=== PATIENT | male | born 1965 | race Caucasian/White ===

== ENCOUNTER 2017-12-13 05:28 | Day surgery (SDC) | payer MEDICAID ==
[2017-12-12 11:37] LABS: HEMOGLOBIN 16.2 g/dL (13.5-17.5); MCH 31.6 pg (26.0-34.0); MCHC 35.2 g/dL (31.0-37.0); MCV 89.8 fL (80.0-100.0); MEAN PLATELET VOLUME 8.8 fL (7.4-10.4); RBC 5.12 10x6/uL (4.20-6.10); RDW 12.6 % (11.5-14.5); WBC 12.5 10x3/uL (4.8-10.8)
[2017-12-12 11:44] LABS: INR 0.95 (0.85-1.17); PROTIME 12.3 SECONDS (11.6-15.0)
[2017-12-12 11:45] LABS: APTT 27.4 SECONDS (22.8-39.4)
[2017-12-12 11:55] LABS: ALBUMIN 3.5 g/dL (3.4-5.0); ALKALINE PHOSPHATASE 121 U/L (46-116); ALT (SGPT) 31 U/L (10-68); CALC OSMOLALITY 278 mosm/kg (275-300); CALCIUM 8.8 mg/dL (8.5-10.1); CARBON DIOXIDE 22.5 mmol/L (21.0-32.0); CHLORIDE - SERUM 102 mmol/L (98-107); CREATININE - SERUM 0.8 mg/dL (0.6-1.3); GLUCOSE 152 mg/dL (74-106); SODIUM 138 mmol/L (136-145); UREA NITROGEN 12 mg/dL (7-18); eGFR NON AFRICAN AMERICAN > 90 mL/min (90-120)
[~2017-12-13] VITALS: Ht 170.2 cm; Wt 73.5 kg
[2017-12-13] VITALS (17 sets, daily range): BP systolic 96–170; BP diastolic 54–104; BMI 27.0
--- NOTE | ~2017-12-13 | OP ---
PATIENT NAME: HOA LOZOYA JR MEDICAL RECORD: [id number] :61 LOCATION:[facility] ADMISSION DATE: SURGEON: REGGIE PRINCE MD DATE OF OPERATION: 12/13/2017 PREOPERATIVE DIAGNOSES: Osteophyte formation and disc herniation at C5-C6 and C6-C7. POSTOPERATIVE DIAGNOSES: Osteophyte formation and disc herniation at C5-C6 and C6-C7 with cervical radiculopathy and central canal stenosis secondary to osteophyte formation. PROCEDURE: Anterior cervical discectomy and fusion at C5-C6 and C6-C7 with removal of osteophytes, Zavation anterior cervical plate and screws, PEEK interbody cages, and separate anterior cervical plate and screws ViaCell bone stem cell allograft. SURGEON: Reggie Prince MD DESCRIPTION OF TECHNIQUE: After induction of general endotracheal anesthesia, the patient was positioned supine on the operating table. Neck was prepped and draped in usual sterile fashion. Fluoroscopic x-ray and freer localized the C5-C6 interspace. A transverse skin incision was carried out from the midline to the sternocleidomastoid muscle. The platysma was divided with Bovie cautery. Using blunt and sharp dissection with Metzenbaum scissors, I proceeded in avascular plane medial to the carotid sheath. The C5-C6 and C6-C7 interspaces were identified with fluoroscopic x-ray and spinal needle. Self-retaining retractors were placed deep to the longus colli muscles. [place]on distracting pins were placed in the bodies of C5, C6, and C7. Each interspace was incised with #11 blade and series of curettes and pituitary rongeurs were used to remove disc material. With a microscope, a Midas Param drill were used to remove osteophytes posteriorly. The posterior longitudinal ligament was removed with Cloward rongeurs. Next, a PEEK interbody cage was placed into each interspace. Prior to this, the posterior longitudinal ligament was removed and the dura was decompressed well on both sides with foraminotomies as well. Prior to placing the PEEK interbody cages, these were filled with ViaCell bone stem cell allograft. Next, a 2-level midline Uniplate was used to span the C5-C6 and C6-C7 interspaces, 18 mm screws were placed through the holes in the plate. Locking cams were tightened down the screw heads. Good position of the hardware was confirmed with the fluoroscopic x-ray. Meticulous hemostasis was maintained throughout the wound. The wound was irrigated with copious amounts of Ancef irrigant solution. The platysma and subdermal layer closed with interrupted 3-0 Vicryl suture, the subdermal layer was closed with interrupted 3-0 Vicryl suture. The skin was reapproximated with Steri-Strips and benzoin. A sterile dressing was applied to the wound. The patient was awakened in good condition and taken to recovery. All counts were reported as correct. Estimated blood loss was minimal. TRANSINT:[id number] Voice Confirmation ID: [id number] DOCUMENT ID: [id number] OPERATIVE REPORT [id number] HOA LOZOYA JR, JOHN MD at 1556 CC: [id number] DICTATION DATE: 12/13/17 1212 TRANSPLANT NURSE PRACTITIONER: 12/13/17 1434 [facility] 12/14/[address] [id number]
[~2017-12-13 05:28] MED LIST: IBUPROFEN200 MG PO; NORVASC10 MG PO
[2017-12-13] MEDS ORDERED: LISINOPRIL TAB 20M (12:31)
[2017-12-13] MEDS ORDERED: BENZONATATE200 MG PO (12:35)
[2017-12-14] VITALS (11 sets, daily range): BP systolic 126–152; BP diastolic 72–96; Ht 170.2 cm; Wt 73.5 kg
[2017-12-14] MEDS ORDERED: HYDROCODONE-APA1 TAB PO (15:27)
== END 2017-12-14 16:09 | disposition home or self-care (01) ==
LOC: D.OPS 05:28 → D.PAN 07:30 → EDSTATUS 09:30 → D.OPS 09:30 → D.ICU 11:32 → D.OPS 12-14 16:09
PROVIDERS: Anesthesiology
DX: M54.12 Radiculopathy, cervical region (principal); M25.78 Osteophyte, vertebrae; Z01.812 Encounter for preprocedural laboratory examination; F17.200 Nicotine dependence, unspecified, uncomplicated; I10 Essential (primary) hypertension; K21.9 Gastro-esophageal reflux disease without esophagitis; G47.30 Sleep apnea, unspecified; J44.9 Chronic obstructive pulmonary disease, unspecified

== ENCOUNTER 2018-07-26 12:46 | Emergency (ER) | payer MEDICAID ==
[~2018-07-26] VITALS: Ht 170.2 cm; Wt 75.0 kg
[~2018-07-26 12:46] MED LIST changes: +BENZONATATE200 MG PO; +HYDROCODONE-APA1 TAB PO; +LISINOPRIL TAB 20M
[2018-07-26 13:02] VITALS: Ht 170.2 cm; Wt 75.0 kg
[2018-07-26] MEDS ORDERED: NORVASC10 MG PO (16:42)
[2018-07-26] MEDS ORDERED: AUGMENTIN 875-11 TAB PO (16:42)
[2018-07-26 16:59] VITALS: BP 191/100
== END 2018-07-26 17:03 | disposition home or self-care (01) ==
LOC: D.ER 12:46
DX: H66.91 Otitis media, unspecified, right ear (principal); R09.89 Other specified symptoms and signs involving the circulatory and respiratory systems; R09.82 Postnasal drip; Z86.19 Personal history of other infectious and parasitic diseases; J44.9 Chronic obstructive pulmonary disease, unspecified; F17.200 Nicotine dependence, unspecified, uncomplicated

== ENCOUNTER → 2018-08-25 15:03 | Outpatient (CLI) | payer MEDICAID ==
[2018-07-26 13:02] VITALS: BMI 25.9
[~2018-08-25 15:03] MED LIST changes: +AUGMENTIN 875-11 TAB PO
== END | disposition home or self-care (01) ==
LOC: D.CT 15:00
DX: R91.1 Solitary pulmonary nodule (principal)

== ENCOUNTER 2019-07-19 13:01 | Emergency (ER) | payer SELFPAY ==
[~2019-07-19] VITALS: Ht 170.2 cm; Wt 75.0 kg
[2019-07-19 14:07] VITALS: Ht 170.2 cm; Wt 75.0 kg
[2019-07-19 14:36] LABS: BASOPHILS 0.5 % (0-2); EOSINOPHILS 2.5 % (0-7); HEMATOCRIT 46.2 % (42.0-54.0); HEMOGLOBIN 16.3 g/dL (13.5-17.5); IMMATURE GRANULOCYTES 0.2 % (0-5); LYMPHOCYTES 37.9 % (15-50); MCHC 35.3 g/dL (31.0-37.0); MCV 90.6 fL (80.0-100.0); MONOCYTES 10.4 % (2-11); NEUTROPHILS 48.5 % (40-80); PLATELET COUNT 251 10x3/uL (130-400); RDW 12.4 % (11.5-14.5); WBC 8.5 10x3/uL (4.8-10.8)
[2019-07-19 14:45] LABS: CALC OSMOLALITY 276 mosm/kg (275-300); CALCIUM 8.9 mg/dL (8.5-10.1); CHLORIDE - SERUM 104 mmol/L (98-107); CREATININE - SERUM 0.8 mg/dL (0.6-1.3); GLUCOSE 143 mg/dL (74-106); POTASSIUM - SERUM 3.8 mmol/L (3.5-5.1); SODIUM 137 mmol/L (136-145); UREA NITROGEN 14 mg/dL (7-18); eGFR NON AFRICAN AMERICAN > 90 mL/min (90-120)
[2019-07-19 14:46] LABS: APTT 30.2 SECONDS (22.8-39.4); INR 0.95 (0.85-1.17); PROTIME 12.2 SECONDS (11.6-15.0)
[2019-07-19 14:59] LABS: ALBUMIN 3.6 g/dL (3.4-5.0); ALKALINE PHOSPHATASE 122 U/L (46-116); ALT (SGPT) 35 U/L (10-68); BILIRUBIN - TOTAL 0.22 mg/dL (0.2-1.3); CKMB 2.8 U/L (0.0-3.6); CREATINE KINASE 135 UL (21-232); PROTEIN - SERUM 7.3 g/dL (6.4-8.2); TROPONIN-I < 0.017 ng/mL (0.000-0.060)
[2019-07-19] MEDS ORDERED: CATAPRES0.1 MG PO (16:47)
[2019-07-19] MEDS ORDERED: OMEPRAZOLE40 MG PO (16:47)
[2019-07-19 17:01] VITALS: BP 171/92
== END 2019-07-19 16:54 | disposition home or self-care (01) ==
LOC: D.ER 13:01
PROVIDERS: Emergency Medicine
DX: K21.9 Gastro-esophageal reflux disease without esophagitis (principal); R07.89 Other chest pain; I10 Essential (primary) hypertension; M54.9 Dorsalgia, unspecified; M19.90 Unspecified osteoarthritis, unspecified site; F17.210 Nicotine dependence, cigarettes, uncomplicated